=== PATIENT | female | born 1985 | race African-American/Black ===

== ENCOUNTER 2024-03-02 09:19 | Emergency (ER) | payer OTHER, MEDICAID ==
[~2024-03-02] VITALS: Ht 170.2 cm; Wt 64.0 kg
[2024-03-02 09:24] VITALS: BP 112/74; PULSE 81; RESP 18; TEMP 98.3; O2SAT 96
== END 2024-03-02 10:19 | disposition left against medical advice (07) ==
LOC: ER 09:19
DX: R07.9 Chest pain, unspecified (principal); F20.9 Schizophrenia, unspecified
CPT/HCPCS: 93005; 99283